=== PATIENT | female | born 2000 | race Two or more races ===

== ENCOUNTER → 2021-11-26 | Outpatient (REF) | payer OTHER | LOC: M SFHCWAGY 16:52 | PROVIDERS: ATTEND Obstetrics & Gynecology | DX: Z36.89 Encounter for other specified antenatal screening (principal); Z3A.00 Weeks of gestation of pregnancy not specified ==

== ENCOUNTER → 2021-12-06 | Outpatient (REF) | payer OTHER | LOC: M SFHCWAGY 16:53 | PROVIDERS: ATTEND Specialist | DX: Z34.83 Encounter for supervision of other normal pregnancy, third trimester (principal); Z3A.00 Weeks of gestation of pregnancy not specified ==

== ENCOUNTER → 2021-12-15 | Outpatient (CLI) | payer OTHER ==
[~2021-12-15] MED LIST: VALT500T PO; [UNRECOGNIZED DRUG - CODE] PO
== END ==
LOC: M LABSMTC 11:04
PROVIDERS: ATTEND Anesthesiology
DX: Z20.828 Contact with and (suspected) exposure to other viral communicable diseases (principal); Z11.59 Encounter for screening for other viral diseases